=== PATIENT | male | born 1955 | race African-American/Black ===

== ENCOUNTER 2020-03-28 12:24 | Emergency (ER) | payer OTHER, SELFPAY ==
--- NOTE | ~2020-03-28 | XR_ITS ---
EXAMINATION: XR wrist LT min 3V DATE: 03/28/2020 13:07 INDICATION: Left wrist pain post injury TECHNIQUE: Posteroanterior, ulnar deviation, oblique, and lateral views of the left wrist were obtain ed. COMPARISON: none FINDINGS: Alignment is normal. No fracture. Joint spaces are normal. Soft tissues are unremarkable. IMPRESSION: 1. Negative left wrist radiographs. Reviewed, dictated and finalized at location A.
--- NOTE | ~2020-03-28 | XR_ITS ---
EXAMINATION: XR ankle LT min 3V DATE: 03/28/2020 13:06 INDICATION: Left ankle pain post injury TECHNIQUE: Anteroposterior, oblique, mortise, and lateral views of the left ankle were obtained. COMPARISON: None. FINDINGS: Alignment is normal. No fracture. Joint spaces are well maintained. No ankle joint effusion. The so ft tissues are unremarkable. IMPRESSION: 1. Negative left ankle radiographs. Reviewed, dictated and finalized at location A.
--- NOTE | 2020-03-28 12:47 | ED.GENADULT ---
HPI - General Adult General Chief complaint: Extremity Injury, Upper Stated complaint: wrist/ankle pain Time Seen by Provider: 03/28/20 12:50 Source: patient and RN notes reviewed Mode of arrival: ambulatory Limitations: no limitations History of Present Illness HPI narrative: 65-year-old male presents with concern for left ankle injury and left wrist injury. Reports 1 week ago he was running from a dog when he had to climb a tree causing the injury. He reports pain worsens with movement. He also reports tenderness in his left posterior chest/back area with movement. Denies any difficulty breathing. Denies any weakness or decreased sensation in any extremity. Reports normal range of motion. MD complaint: Upper extremity injury, lower extremity injury Related Data Home Medications Medication Instructions Recorded Confirmed atorvastatin 03/28/20 Allergies Allergy/AdvReac Type Severity Reaction Status Date / Time No Known Allergies Allergy Mild Unverified 03/28/20 12:51 Review of Systems Review of Systems: Narrative: CONSTITUTIONAL: Denies malaise, chills, sweats, or fever. CARDIOVASCULAR: Denies chest pain, palpitations, or edema. RESPIRATORY: Denies cough or dyspnea. SKIN: Denies bruising, redness MUSCULOSKELETAL: Reports left wrist swelling, pain. Reports left ankle swelling, pain. NEUROLOGIC: Denies numbness, weakness. All systems reviewed & are unremarkable except as noted in HPI and below PMFSH Social History Social History Gender identity (if verbalized by the patient): Male Comments At time of signature, agree with nursing past medical, surgical, social and family history. There is no relevant family history pertinent to the presenting complaint Exam Narrative: Exam Narrative: GENERAL: Well-appearing, well-nourished, and in no acute distress. HEAD: Normocephalic, atraumatic. EYES: PERRLA, conjunctivae clear NECK: Supple. CHEST: Speaks in full sentences. No respiratory distress. HEART: Regular rate and rhythm. Normal and equal peripheral pulses. EXTREMITIES: Left wrist, digits of left hand have normal strength and sensation, mild dorsal edema, normal range of motion. 5/5 strength with wrist and digit flexion and extension. Normal sensation with sensitivity to light touch and pain. No open wounds, no skin tenting, no devitalized tissue or atrophy, no trophic changes, no ecchymosis, no obvious deformity, alignment normal, no point tenderness, nearby joints and structures intact. Distal pulses palpable and equal bilaterally, skin warm, dry, pink. Capillary refill less than 3 seconds. Left ankle and digits of left foot have normal strength and sensation, mild lateral edema, normal range of motion. 5/5 strength with ankle and digit flexion and extension. Normal sensation with sensitivity to light touch and pain. No open wounds, no skin tenting, no devitalized tissue or atrophy, no trophic changes, no ecchymosis, no obvious deformity, alignment normal, no point tenderness, nearby joints and structures intact. Distal pulses palpable and equal bilaterally, skin warm, dry, pink. Capillary refill less than 3 seconds. SKIN: Warm, dry, no rash. NEURO: Alert and oriented x3. PSYCH: Normal mood and affect Course Course Emergency Course: Patient is aware of diagnosis, understands and agrees to treatment plan. Anticipatory guidance given. Patient agrees to follow-up as directed and is aware of reasons to seek care at the emergency department. Portions of this record may have been created with voice recognition software Vital Signs Vital signs: Vital Signs Temperature 96.7 F L 03/28/20 12:49 Pulse Rate 84 03/28/20 12:49 Respiratory Rate 18 03/28/20 12:49 Blood Pressure 133/81 03/28/20 12:49 Pulse Oximetry 100 03/28/20 12:49 Temperature 96.7 F L 03/28/20 12:49 Pulse Rate 84 03/28/20 12:49 Respiratory Rate 18 03/28/20 12:49 Blood Pressure 133/81 03/28/20 12:49 Pulse Oximetry 100 05
[2020-03-28 12:49] VITALS: BP 133/81; PULSE 84; RESP 18; TEMP 35.9; O2SAT 100
== END 2020-03-28 13:33 | disposition home or self-care (01) ==
PROVIDERS: Emergency Provider Nurse Practitioner
DX: S99.912A Unspecified injury of left ankle, initial encounter (principal); S69.92XA Unspecified injury of left wrist, hand and finger(s), initial encounter; Y93.02 Activity, running; X58.XXXA Exposure to other specified factors, initial encounter
CPT/HCPCS: 73110; 73610; 99214; G0463

== ENCOUNTER 2020-05-10 10:55 | Emergency (ER) | payer OTHER, SELFPAY ==
--- NOTE | ~2020-05-10 | XR_ITS ---
EXAMINATION: XR hand LT min 3V INDICATION: Left hand pain TECHNIQUE: Three views of the left hand are obtained. COMPARISON: 03/28/2020 FINDINGS: There is no fracture, dislocation, or subluxation. The bones, soft tissues, and joint space s are normal. IMPRESSION: 1. No acute osseous abnormality. Reviewed, dictated and finalized at location A.
[2020-05-10 11:04] VITALS: BP 156/84; PULSE 90; RESP 16; TEMP 36.4; O2SAT 99
--- NOTE | 2020-05-10 11:48 | ED.UPPEXIN ---
HPI - Extremity Injury (Upper) General Chief Complaint: Extremity Injury, Upper Stated Complaint: left hand swollen Time Seen by Provider: 05/10/20 11:40 Source: patient Mode of arrival: ambulatory Limitations: no limitations History of Present Illness HPI narrative: This is a return visit for Gage Alvarez, who came here 6 weeks ago after being chased by pit bull and sustained injury to L thumb and sprained ankle. Jade ot use thumb, now is swelling- let go from grocery store because cannot grasp Related Data Home Medications Medication Instructions Recorded Confirmed atorvastatin 03/28/20 Allergies Allergy/AdvReac Type Severity Reaction Status Date / Time No Known Allergies Allergy Mild Unverified 03/28/20 12:51 Review of Systems Review of Systems: Narrative: CONSTITUTIONAL: Denies fever, chills, sweats. EYES: Denies visual changes, redness, discharge. ENT: Denies rhinorrhea, congestion, sore throat, otalgia. CARDIOVASCULAR: Denies chest pain, palpitations, edema. RESPIRATORY: Denies dyspnea, wheezing, cough GASTROINTESTINAL: Denies abdominal pain, nausea, vomiting, diarrhea. GENITOURINARY: Denies dysuria, hematuria, abnormal discharge SKIN: Denies rash or itching. NEUROLOGIC: Denies numbness, or focal weakness. PSYCHIATRIC: Denies anxiety or depression. Left hand pain, left thumb pain and swelling PMFSH Family History Family History Other Hypertension Social History Social History Smoking status: Former smoker Substance use: current Gender identity (if verbalized by the patient): Male Comments At time of signature, I agree with nursing past medical, surgical, social and family history. There is no relevant family history pertinent to the presenting complaint. Exam Narrative: Exam Narrative: GENERAL: This is a well-nourished, well-developed patient, in mild distress. HEAD: normocephalic, atraumatic. EYES: Sclera clear/white. Vision is grossly intact. EARS: External ears normal. Hearing grossly intact. NOSE: External nose normal without nasal discharge, nares without redness, no rhinorrhea. THROAT: Mucous membranes moist, NECK: Neck supple, CARDIOVASCULAR: Regular rate and rhythm without murmurs, gallops, or rubs. RESPIRATORY: Clear to auscultation. Breath sounds equal bilaterally. No wheezes, rales, or rhonchi. GASTROINTESTINAL: Abdomen soft, non-tender, SKIN: warm, intact with no suspicious lesions or rash, good texture and turgor. NEURO: awake, alert, and oriented to person, place and time. There were no obvious focal neurologic abnormalities. Steady gait EXTREMITIES: Normal range of motion on R- L hand: pain on palpation of base of left thumb, unable to complete finger opposition, decreased finger strength, hand is swollen beyond the splint but was given to patient last visit BACK: Nontender without deformity Course Course Emergency Course: X-ray left hand- result: No fracture dislocation or subluxation, soft tissue and joint spaces appear normal Gavin wrap applied and referred to hand surgeon Dr. West Vital Signs Vital signs: Vital Signs Temperature 97.6 F 05/10/20 11:04 Pulse Rate 90 05/10/20 11:04 Respiratory Rate 16 05/10/20 11:04 Blood Pressure 156/84 H 05/10/20 11:04 Pulse Oximetry 99 05/10/20 11:04 Temperature 97.6 F 05/10/20 11:04 Pulse Rate 90 05/10/20 11:04 Respiratory Rate 16 05/10/20 11:04 Blood Pressure 156/84 H 05/10/20 11:04 Pulse Oximetry 99 05/10/20 11:04 Discharge Plan Discharge Clinical Impression: Hand pain, left, Reduced mobility Patient Disposition: Home, Self-Care Condition: Stable Instructions: Arthralgia (ED) Additional Instructions: Follow-up with hand surgeon Dr. West. Continue movement of thumb but no heavy lifting no aggressive torsion of hand, use Naprosyn for pain Prescriptions:
== END 2020-05-10 12:26 | disposition home or self-care (01) ==
PROVIDERS: Emergency Provider Nurse Practitioner
DX: M79.642 Pain in left hand (principal); Z87.891 Personal history of nicotine dependence; E78.00 Pure hypercholesterolemia, unspecified
CPT/HCPCS: 73130; 99213; G0463